=== PATIENT | female | born 1940 | race Caucasian/White ===

== ENCOUNTER 2023-05-30 19:31 | Emergency (ER) | payer MEDICARE, SELFPAY ==
--- NOTE | ~2023-05-30 | CT_ITS ---
CORRECTED REPORT [place] [facility] [place] This report was recreated on 05/31/23. Original report was EXAMINATION: CT brain w/o con DATE: 05/30/2023 20:18 INDICATION: Head injury. TECHNIQUE: Computed tomography (CT) of the head was performed without intravenous contrast. The mA was adjusted according to patient size. Iterative reconstruction technique was employed. The dose-length product was 605.33 mGy- cm. COMPARISON: None FINDINGS: There are scattered areas of low attenuation in the cerebral white matter. There is no intracranial hemorrhage, acute infarction, or abnormal intracranial mass lesion. The ventricles are normal in size. There are likely changes of ocular lens replacement surgeries. There is mucosal thickening in the paranasal sinuses. The mastoid air cells are normal. There is a right occipital craniotomy. There is right posterior superior scalp soft tissue swelling. IMPRESSION: 1. Mild nonspecific cerebral white matter disease, which likely represents chronic small vessel ischemic disease. Reviewed, dictated and finalized at location E. MTDD IMPRESSION: 1. Mild nonspecific cerebral white matter disease, which likely represents clinical dietetic technician izabel small vessel ischemic disease.
--- NOTE | ~2023-05-30 | XR_ITS ---
EXAMINATION: XR lumbar spine 2-3V DATE: 05/30/2023 20:25 INDICATION: Mid to low back pain. Fall. TECHNIQUE: 3 views of lumbar spine were obtained. COMPARISON: None. FINDINGS: There is 17 degrees levoscoliosis of lumbar spine. Vertebral body heights are normal. There is mildly decreased disc height at T12-L1, L1-L2, and L2-L3 and moderately decreased disc height at L2-3-L4 and L4-L5. There is multilevel facet joint osteoarthritis, severe in lower lumbar spine. Ther e are surgical clips in right abdomen. IMPRESSION: 1. Moderate lumbar spondylosis. 2. Lumbar levoscoliosis. Reviewed, dictated and finalized at location E.
--- NOTE | ~2023-05-30 | CT_ITS ---
CORRECTED REPORT EXAM DESCRIPTION [facility] [place] 05/31/23 This report was recreated on 05/31/23. Original report was EXAMINATION: CT cervical spine w/o con DATE: 05/30/2023 20:19 INDICATION: Head injury. TECHNIQUE: Computed tomography (CT) of the cervical spine was performed without intravenous contrast. Automated exposure control and iterative reconstruction technique were employed. The dose-length product was 236.71 mGy-cm. COMPARISON: None FINDINGS: There is 7 degrees levocurvature of cervical spine. Vertebral body heights are normal. There is mildly decreased disc height at C3-C4, C4-C5, and C5-C6 and moderately decreased disc at C6-C7. The following disc levels are specifically discussed: C2-C3: There is no uncovertebral joint osteoarthritis. There is mild bilateral facet joint osteoarthritis. There is no neural foraminal stenosis. There is no central canal stenosis. C3-C4: There is severe right uncovertebral joint osteoarthritis. There is no facet joint osteoarthritis. There is mild right neural foraminal stenosis. There is mild central canal stenosis. C4-C5: There is mild left uncovertebral joint osteoarthritis. There is mild bilateral facet joint osteoarthritis. There is mild left neural foraminal stenosis. There is no central canal stenosis. C5-C6: There is severe bilateral uncovertebral joint osteoarthritis. There is no facet joint osteoarthritis. There is mild bilateral neural foraminal stenosis. There is mild central canal stenosis. C6-C7: There is severe bilateral uncovertebral joint osteoarthritis. There is no facet joint osteoarthritis. There is mild bilateral neural foraminal stenosis. There is mild central canal stenosis. C7-T1: There is no uncovertebral joint osteoarthritis. There is mild bilateral facet joint osteoarthritis. There is no neural foraminal stenosis. There is no central canal stenosis. IMPRESSION: 1. No fracture. 2. Moderate cervical spondylosis. Reviewed, dictated and finalized at location E. MTDD
[2023-05-30 19:57] VITALS: BP 143/72; PULSE 79; RESP 20; TEMP 36.7; O2SAT 98
--- NOTE | 2023-05-30 20:22 | ED.HEATRA ---
HPI - Head Injury General Chief complaint: Head Injury Stated complaint: fall with head injury - no LOC - no thinners Time Seen by Provider: 05/30/23 20:22 Source: patient and family Mode of arrival: ambulatory Limitations: no limitations History of Present Illness HPI Narrative: 82 years old white female, came because of a fall. Her granddaughter was trying to give her a big hug and was standing on a [place] board at that time, patient lost her balance and fell backward landed on her bottom and struck the back of her head on the ground. No loss of consciousness, complaining of tailbone pain and occipital pain. Does not take antiplatelet or anticoagulant medication. Related Data Allergies Allergy/AdvReac Type Severity Reaction Status Date / Time oxcarbazepine Allergy Unknown Hives / Verified 05/30/23 20:29 Red Face Review of Systems Review of Systems: All systems reviewed & are unremarkable except as noted in HPI and below Exam Narrative: General appearance: Well-developed, well-nourished Skin: Normal color Head: Large hematoma at the occipital area Eyes: Clear conjunctiva ENT: Oropharynx normal, ears normal, nose normal Neck: Supple, nontender Chest and respiratory: Airway patent, no respiratory distress, no accessory muscle use Heart: Regular rate/rhythm Abdomen: Soft, nontender, no organomegaly, quiet bowel sounds Vascular: Normal peripheral pulses, normal capillary refill. Musculoskeletal: Moderate tenderness at the sacrum and coccyx area Neurologic: Alert and oriented ?3, EFFICIENCY MINER BLASTING is normal as tested, no gross motor deficit Course Reevaluation(s) Reevaluation #1: Patient declined to take any pain medication at this Date: 05/30/23 Time: 20:32 Vital Signs Vital signs: Vital Signs Temperature 36.7 C 05/30/23 19:57 Pulse Rate 79 05/30/23 19:57 Respiratory Rate 20 05/30/23 19:57 Blood Pressure 143/72 H 05/30/23 19:57 Pulse Oximetry 98 05/30/23 19:57 Oxygen Delivery Room Air 05/30/23 19:57 Temperature 36.7 C 05/30/23 19:57 Pulse Rate 79 05/30/23 19:57 Respiratory Rate 20 05/30/23 19:57 Blood Pressure 143/72 H 05/30/23 19:57 Pulse Oximetry 98 05/30/23 19:57 Oxygen Delivery Room Air 05/30/23 19:57 MDM - Head Injury MDM Narrative Medical decision making narrative: Patient presents with a fall complaining of occipital pain and tailbone pain. Physical examination as above, vital signs are unremarkable, differential diagnosis closed head injury, intracranial bleed, skull fracture, vertebral fracture. CT head and cervical spine and x-ray of the lumbar/coccyx showed no acute abnormalities. Patient declined to take any pain medication in the ED. Differential Diagnosis Differential diagnosis: Likely concussion without loss of consciousness, subarachnoid hematoma, postconcussion syndrome and subdural hematoma Medical Records Attestation: I reviewed the patient's medical records. Imaging Data Attestation: I personally reviewed and interpreted this imaging study as follows: Radiologist's impression: Impressions Head CT 05/30/23 20:19 IMPRESSION: 1. Mild nonspecific cerebral white matter disease, which likely represents chronic small vessel ischemic disease. Critical Care Time Critical Care Time Critical Care Time: No Discharge Plan Discharge Clinical Impression: Back injuries Closed head injury Qualifiers: Encounter type: initial encounter Qualified Code(s): S09.90XA - Unspecified injury of head, initial encounter Patient Disposition: Home, Self-Care Condition: Stable Instructions: Head Injury (ED) Additional Instructions: Return if symptoms are wors
[2023-05-30 20:30] VITALS: BP 153/91; PULSE 81; RESP 14; O2SAT 98
== END 2023-05-30 21:00 | disposition home or self-care (01) ==
PROVIDERS: Emergency Provider Emergency Medicine
DX: S00.03XA Contusion of scalp, initial encounter (principal); S39.92XA Unspecified injury of lower back, initial encounter; R90.82 White matter disease, unspecified; M47.812 Spondylosis without myelopathy or radiculopathy, cervical region; M47.816 Spondylosis without myelopathy or radiculopathy, lumbar region; V00.848A Other accident with standing micro-mobility pedestrian conveyance, initial encounter
CPT/HCPCS: 70450; 70460; 72100; 72125; 72126; 99284; Q9967

== ENCOUNTER 2023-10-20 15:52 | Inpatient (IN) | payer MEDICARE, SELFPAY ==
[2023-10-20] VITALS (7 sets, daily range): BP systolic 60–157; BP diastolic 41–110; PULSE 57–80; RESP 12–23; TEMP 36.7–37; O2SAT 90–100; BMI 31.6
--- NOTE | ~2023-10-20 | XR_ITS ---
EXAMINATION: XR chest 1V DATE: 10/20/2023 17:41 INDICATION: Fall. TECHNIQUE: A single frontal view of the chest was obtained on 2 radiographs. COMPARISON: Chest 2 views 01/25/2018 FINDINGS: There is mild elevation of left hemidiaphragm. There is mild atelectasis at the lung bases. No pleural effusion or pneumothorax. The heart size is normal. Surgical clips in the right upper carla drant are likely from cholecystectomy. IMPRESSION: 1. Mild atelectasis at the lung bases. Reviewed, dictated and finalized at location E. ARY SERIALS ASSISTANT
--- NOTE | ~2023-10-20 | XR_ITS ---
EXAMINATION: XR femur LT min 2V DATE: 10/20/2023 17:41 INDICATION: Left thigh pain. Fall. TECHNIQUE: 2 views of left femur on 4 radiographs were obtained. COMPARISON: None. FINDINGS: There is an intertrochanteric fracture of proximal left femur. The distal fracture fragment demonstrates posterior angulation. There is moderate left hip osteoarthritis. There is severe left k nee osteoarthritis. IMPRESSION: 1. Intertrochanteric fracture of proximal left femur. 2. Polyarticular osteoarthritis. Reviewed, dictated and finalized at location E. ORS MOTIVATIONAL
--- NOTE | ~2023-10-20 | CT_ITS ---
EXAMINATION: CT brain wo con DATE: 10/21/2023 16:33 INDICATION: Head injury. Fall. TECHNIQUE: Computed tomography (CT) of the head was performed without intravenous contrast. The mA wa s adjusted according to patient size. Iterative reconstruction technique was employed. The dose-lengt h product was 605.33 mGy-cm. COMPARISON: Head CT 05/30/2023 FINDINGS: There are scattered areas of low attenuation in the cerebral white matter. There is no intr acranial hemorrhage, acute infarction, or abnormal intracranial mass lesion. The ventricles are lopez l in size. There are changes of right posterior craniotomy. There are likely changes of ocular lens r eplacement surgeries. There is mild mucosal thickening in the paranasal sinuses. The mastoid air cell s are normal. IMPRESSION: 1. Stable mild nonspecific cerebral white matter disease, which likely represents chronic small vesse l ischemic disease. Reviewed, dictated and finalized at location E. ION WORKER IMPRESSION: 1. Stable mild nonspecific cerebral white matter disease, which likely represen ts chronic small vessel ischemic disease.
--- NOTE | ~2023-10-20 | XR_ITS ---
XR surgery orthopedic DATE: 10/22/2023 09:00 INDICATION: ORIF left intertrochanteric hip fracture TECHNIQUE: 4 spot C-arm images of the left hip 14.97 mGy 59 seconds fluoroscopy time COMPARISON: 10/20/2023 pelvis and left hip FINDINGS: Intramedullary pin and interlocking compression screw of proximal left femur provide virtua lly anatomic position and alignment at the intertrochanteric fracture of the left hip. IMPRESSION: ORIF left intertrochanteric hip fracture Reviewed, dictated and finalized at Location A. Reviewed, dictated and finalized at location A.
--- NOTE | ~2023-10-20 | XR_ITS ---
EXAMINATION: XR hip LT 2V w AP pelvis DATE: 10/20/2023 17:41 INDICATION: Left thigh pain. Fall. TECHNIQUE: An anteroposterior view of the pelvis and 2 views of left hip were obtained. COMPARISON: None. FINDINGS: There is an intertrochanteric fracture of proximal left femur. The distal fracture fragment demonstrates posterior angulation. There is moderate osteoarthritis of the hips. Osteitis pubis is n oted. There is lumbar levoscoliosis and severe spondylosis. IMPRESSION: 1. Intertrochanteric fracture of proximal left femur. 2. Moderate osteoarthritis of the hips. Reviewed, dictated and finalized at location E. L BEARING POLISHER
--- NOTE | 2023-10-20 16:36 | ED.FALL ---
HPI - Fall General Chief Complaint: Fall Stated Complaint: GLF Source: patient and family Mode of arrival: EMS Limitations: no limitations History of Present Illness HPI Narrative: 83 yo with insulin dependent (only 3U long acting QHS however) diabetes presents after a ground level fall sustained at 10:30 this morning. She is now complaining of pain in her mid thigh and proximal left leg. Pain was so intense she couldn't get up from the floor so lay there until family arrived hours later. Has not yet taken anything for pain. No paresthesias. Related Data Home Medications Medication Instructions Recorded Confirmed alendronate 70 mg tablet 70 mg PO WEEKLY 10/20/23 10/20/23 benazepril 20 mg tablet 20 mg PO QHS 10/20/23 10/20/23 calcium carbonate 600 mg calcium 600 mg PO DAILY 10/20/23 10/20/23 (1,500 mg) tablet cholecalciferol (vitamin D3) 50 50 mcg PO BID 10/20/23 10/20/23 mcg (2,000 unit) tablet (Vitamin D3) cyanocobalamin (vitamin B-12) 1,000 mcg PO DAILY 10/20/23 10/20/23 1,000 mcg tablet (Vitamin B-12) famotidine 20 mg tablet (Pepcid) 20 mg PO DAILY 10/20/23 10/20/23 insulin glargine 100 unit/mL (3 3 unit subcut QHS 10/20/23 10/20/23 mL) subcutaneous pen (Lantus Solostar U-100 Insulin) [id number] 2 cap PO TID 10/20/23 10/20/23 24,000-76,000-120,000 unit capsule,delayed rel (Creon) omega-3 fatty acids-vitamin E 1,000 cap PO DAILY 10/20/23 10/20/23 1,000 mg capsule simvastatin 20 mg tablet 20 mg PO EVERY OTHER DAY 10/20/23 10/20/23 Allergies Allergy/AdvReac Type Severity Reaction Status Date / Time oxcarbazepine Allergy Unknown Hives / Verified 05/30/23 20:29 Red Face PMFSH Past Medical History Medical History (Updated 10/21/23 @ 08:13 by Diamante Lazar MD) Hypercholesterolemia Hypertension Insulin dependent diabetes mellitus Insulinoma Surgical History Surgical History (Updated 10/20/23 @ 20:55 by Pamela Tilley PA-C) History of cholecystectomy History of resection of small bowel History of Whipple procedure (~2005) Family History Family History (Updated 10/20/23 @ 20:47 by Aleta Kendrick RN) Mother Diabetes mellitus Pulmonary embolism Sibling Diabetes mellitus Atrial fibrillation Sibling Diabetes mellitus Dementia Sibling Diabetes mellitus Father Myocardial infarction Social History Social History Smoking status: Never smoker Alcohol intake: never Substance use: never Substance use type: does not use Do You Feel Safe in your Home?: Yes Lack of Transportation: No Lack of Food: Never True Current Housing: I Have Housing Concerned About Future Housing: No Difficulty Paying Gas/Electric Bills: No Difficulty Paying for Meds: No Currently Unemployed: No Education: High School Diploma/GED Difficulty w/ Childcare or Family Care: No Spiritual care concerns: No Exam Narrative: GENERAL: Well-appearing, well-nourished, and in no acute distress. HEAD: Normocephalic, atraumatic. EYES: Non injected, non icteric ENT: Nares clear, no rhinorrhea or epistaxis. NECK: Supple. CHEST: Speaking in full sentences. No respiratory distress. HEART: Regular rate and rhythm. . ABDOMEN: Soft, nondistended. EXTREMITIES: Left leg short and rotated. No edema. 5/5 strength with left ankle plantarflexion/dorsiflexion. Rest of exam limited secondary to pain. Warm and well perfused. SKIN: Warm, dry, no rash. NEURO: No focal deficits. Alert and oriented x3. Sensation intact throughout left leg. PSYCH: Normal mood and affect. Course Vital Signs Vital signs: Vital Signs Temperature 98.6 F 10/20/23 16:01 Pulse Rate 75 10/20/23 16:01 Respiratory Rate 20 10/20/23 16:01 Blood Pressure 126/110 H 10/20/23 16:01 Pulse Oximetry 99 10/20/23 16:01 Oxygen Delivery Room Air 10/20/23 16:01 Temperature 97.9 F 10/21/23 06:00 Pulse Rate 80 0
[2023-10-20] MEDS: ACETAMINOPHEN 500 MG TABLET 1000 MG PO (16:53)
[2023-10-20 16:59] LABS: Hematocrit 39.5 % (37.0-47.0); Mean Corpuscular HGB Conc 32.9 g/dl (32-36); Mean Corpuscular Hemoglobin 29.3 pg (26-34); Mean Platelet Volume 11.1 fl (7.4-10.4); Platelet Count Result 170 k/mm3 (150-375); Red Blood Count 4.44 M/mm3 (4.2-5.4); Red Cell Distribution Width 12.6 % (11.5-14.5); White Blood Count 14.8 K/mm3 (4.5-10.0)
[2023-10-20 17:08] LABS: Alanine Aminotransferase 22 U/L (6-35); Albumin Level 4.3 g/dL (3.5-5.1); Alkaline Phosphatase 116 U/L (38-126); Anion Gap 7 mmol/L (8-16); Aspartate Amino Transferase 38 U/L (14-36); Bilirubin,Total 0.6 mg/dL (0.2-1.3); Blood Urea Nitrogen 19 mg/dL (7-17); Calcium 9.6 mg/dL (8.4-10.2); Carbon Dioxide 25 mmol/L (22-30); Chloride 104 mmol/L (98-107); Creatine Kinase 179 U/L (30-135); Estimated CRCL calculation 67 ml/min; Estimated Glomerular Filt Rate > 60; Glucose 202 mg/dL (65-110); Magnesium 1.9 mg/dL (1.6-2.3); Potassium 4.3 mmol/L (3.4-5.0); Sodium 136 mmol/L (137-145)
[2023-10-20 17:09] LABS: Prothrombin Time 13.5 Seconds (11.1-14.7)
[2023-10-20 17:10] LABS: Partial Thromboplastin Time 31.7 SECONDS (22.3-36.8)
[2023-10-20 17:52] LABS: Band Neutrophils Percent 3 % (0-6); Lymphocytes Absolute Manual 0.44 K/mm3 (1.1-4.5); Monocytes Absolute Manual 0.44 K/mm3 (0.1-0.90); Monocytes Percent Manual 3 % (3-9); Neutrophils Absolute Manual 13.91 K/mm3 (1.7-7.2); Neutrophils Percent Manual 91 % (46-73); Nucleated Red Blood Cells 1 %; Platelet Estimate Adequate (Adequate); Schistocytes None Seen (NORMAL); Total Cells Counted 100
[2023-10-20] MEDS: MORPHINE SULFATE (*CRX) 4 MG/ML INJ IV PUSH (18:30)
[2023-10-20] MEDS: ONDANSETRON INJ 4 MG/2 ML VIAL IV PUSH ×2 (18:45→19:00)
--- NOTE | 2023-10-20 18:53 | ECG_ITS ---
Measurements Intervals [place] Rate: 54 P: 27 TX: 161 QRS: 12 QRSD: 98 T: 34 QT: 462 QTc: 441 Interpretive Statements SINUS BRADYCARDIA NONSPECIFIC ST-T WAVE ABNORMALITY- LAT/HIGH LAT LEADS BASELINE ARTIFACT- II, AVR, AVF, V4-V6 BORDERLINE ECG NO PREVIOUS ECG AVAILABLE FOR COMPARISON Electronically Signed On 10-21-2023 7:25:11 SOFT WORK WRAPPER LAYER AND EXAMINER by Pradip Patton D.O.
[2023-10-20] MEDS: SODIUM CHLORIDE 0.9% IV 1,000 ML 999 ML (19:00)
[2023-10-20 19:17] LABS: Troponin I < 0.012 ng/mL (0.000-0.034)
--- NOTE | 2023-10-20 19:42 | PM.IMHP ---
H&P: HPI History of Present Illness Date/Time: 10/20/23 19:15 Chief Complaint: Left hip pain after fall. 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 The patient provides the following history. She is in town from [place] visiting her family members and she has been in her usual state of health. Sometime this afternoon she was in the bathroom brushing her hair and when she stepped forward she lost her balance and fell down onto her left side. She was unable to get herself up and unfortunately did not have a phone with her so she lay on the floor for approximately 4 hours before family came home to find her. She denies head trauma and loss of consciousness in the fall and has no other complaints aside from severe, 10/10 pain in the left hip. She received 4 mg IV morphine for her pain which helped however did cause transient hypotension at which time she had mild mid chest tightness lasting less than 1 minute. With further questioning she reports having a stress test many years ago which was negative. She has not had exertional chest pain or shortness of breath. She also denies syncope, near syncope, sweats, pleuritic pain, shortness a breath, nausea, and vomiting. In the ED she was found to have intertrochanteric fracture of the proximal left femur and she is being admitted in this setting. Review of Systems Review of Systems: Twelve systems were reviewed and are negative except for as per HPI. [facility] Past Medical History Medical History (Updated 10/20/23 @ 20:55 by Pamela Tilley PA-C) Hypercholesterolemia Hypertension Insulin dependent diabetes mellitus Insulinoma Surgical History Surgical History (Updated 10/20/23 @ 20:55 by Pamela Tilley PA-C) History of cholecystectomy History of resection of small bowel History of Whipple procedure (~2005) Family History Family History Mother Diabetes mellitus Pulmonary embolism Sibling Diabetes mellitus Atrial fibrillation Sibling Diabetes mellitus Dementia Sibling Diabetes mellitus Father Myocardial infarction Social History Social History Smoking status: Never smoker Alcohol intake: never Substance use: never Substance use type: does not use Do You Feel Safe in your Home?: Yes Lack of Transportation: No Lack of Food: Never True Current Housing: I Have Housing Concerned About Future Housing: No Difficulty Paying Gas/Electric Bills: No Difficulty Paying for Meds: No Currently Unemployed: No Education: High School Diploma/GED Difficulty w/ Childcare or Family Care: No Spiritual care concerns: No Meds Home Medications and Allergies Home Medications Medication Instructions Recorded Confirmed Type alendronate 70 mg tablet 70 mg PO WEEKLY 10/20/23 10/20/23 History benazepril 20 mg tablet 20 mg PO QHS 10/20/23 10/20/23 History calcium carbonate 600 mg calcium 600 mg PO DAILY 10/20/23 10/20/23 History (1,500 mg) tablet cholecalciferol (vitamin D3) 50 50 mcg PO BID 10/20/23 10/20/23 History mcg (2,000 unit) tablet (Vitamin D3) cyanocobalamin (vitamin B-12) 1,000 mcg PO DAILY 10/20/23 10/20/23 History 1,000 mcg tablet (Vitamin B-12) famotidine 20 mg tablet (Pepcid) 20 mg PO DAILY 10/20/23 10/20/23 History insulin glargine 100 unit/mL (3 3 unit subcut QHS 10/20/23 10/20/23 History mL) subcutaneous pen (Lantus Solostar U-100 Insulin) [id number] 2 cap PO TID 10/20/23 10/20/23 History 24,000-76,000-120,000 unit capsule,delayed rel (Creon) omega-3 fatty acids-vitamin E 1,000 cap PO DAILY
--- NOTE | 2023-10-20 20:45 | ADMGEN ---
This patient, Nicole To, was admitted to Medical Room 247-. Patient/family oriented to hospital policies and general routines including ID bracelet, bed and alarms, visiting hours, pain management, procedures, bathroom and other care routines, personal items, smoking policy, room service/diet, and visiting hours. Information on how to activate the Rapid Response Team has been discussed. Patient/Family are encouraged to report perceived risks to care and to ask questions if they do not understand what they are told or what they should do.
[2023-10-20] MEDS: HYDROcodone/acetaminophen (*CRX) 5-325 MG TABLET 1 TAB PO (20:56)
[2023-10-20] MEDS: lisinopriL 20 MG TABLET PO (22:04)
[2023-10-20] MEDS: INSULIN GLARGINE (*BKC) 100 UNITS/ML SUB-Q (22:04)
[2023-10-20 22:05] LABS: Troponin I < 0.012 ng/mL (0.000-0.034)
[2023-10-21] VITALS (9 sets, daily range): BP systolic 114–128; BP diastolic 49–70; PULSE 75–87; RESP 16–18; TEMP 36.4–36.8; O2SAT 93–98
[2023-10-21 00:48] LABS: Troponin I < 0.012 ng/mL (0.000-0.034)
[2023-10-21] MEDS: traMADol HCL (*CRX) 50 MG TABLET PO ×2 (01:28→07:54)
[2023-10-21 05:39] LABS: Alanine Aminotransferase 22 U/L (6-35); Albumin Level 3.6 g/dL (3.5-5.1); Alkaline Phosphatase 82 U/L (38-126); Anion Gap 5 mmol/L (8-16); Aspartate Amino Transferase 36 U/L (14-36); Bilirubin,Total 0.6 mg/dL (0.2-1.3); Blood Urea Nitrogen 15 mg/dL (7-17); Calcium 8.7 mg/dL (8.4-10.2); Carbon Dioxide 24 mmol/L (22-30); Chloride 104 mmol/L (98-107); Creatine Kinase 138 U/L (30-135); Estimated CRCL calculation 68 ml/min; Estimated Glomerular Filt Rate > 60; Glucose 180 mg/dL (65-110); Magnesium 1.9 mg/dL (1.6-2.3); Sodium 133 mmol/L (137-145)
[2023-10-21 06:30] LABS: Hematocrit 36.4 % (37.0-47.0); Hemoglobin 12.1 g/dL (12.0-15.0); Mean Corpuscular HGB Conc 33.2 g/dl (32-36); Mean Corpuscular Hemoglobin 29.5 pg (26-34); Mean Corpuscular Volume 88.8 fl (80-100); Mean Platelet Volume 11.2 fl (7.4-10.4); Platelet Count Result 166 k/mm3 (150-375); Red Cell Distribution Width 12.8 % (11.5-14.5); White Blood Count 10.6 K/mm3 (4.5-10.0)
[2023-10-21 08:07] LABS: Glucose Point of Care 171 mg/dl (65-105)
[2023-10-21] MEDS: PERFLUTREN LIPID MICROSPHERES 1.5 ML VIAL DILUTED TO 10 ML TOTAL VOLUME IV PUSH (09:10)
--- NOTE | 2023-10-21 10:36 | IVDEFINITY ---
Prior to administration of IV Definity the patient was educated on the risks and benefits of the imaging enhancing agent including potential adverse side effects. The patient verbalized understanding. Allergies were verified. No exclusion criteria were identified and at least one of the following inclusion criteria were met: 1) physician request, 2) patient technically difficult to image (per the [place] [employer] guidelines of two or more segments not discernable within the apical view), or 3) questionable left ventricular function. ?
--- NOTE | 2023-10-21 10:55 | PM.CNOR ---
Assessment and Plan Assessment and plan (1) Intertrochanteric fracture of left femur: Qualifiers: Encounter type: initial encounter Fracture type: closed Fracture alignment: displaced Qualified Code(s): S72.142A - Displaced intertrochanteric fracture of left femur, initial encounter for closed fracture Code(s): S72.142A - Displaced intertrochanteric fracture of left femur, initial encounter for closed fracture Status: Acute Plan Displaced intertrochanteric fracture left hip. I discussed the proposed procedure with the patient and family. Risks, benefits, and alternatives discussed. Proceed with ORIF left hip with cephalomedullary nail (short gamma nail). Anticipate 6 weeks acute rehab before returning to [place]. History of Present Illness HPI Consult date: 10/21/23 Chief complaint: l intertrochanteric fx, hx diabetes Narrative: Patient complains of acute left hip pain. Fell from standing height. She is in town from [place] visiting family. Admitted through the emergency room for definitive management. No previous hip pain. Comfortable at rest. No numbness, tingling, or other associated symptoms. Review of Systems Review of Systems: Denies loss of consciousness. Was down for several hours after falling. History of cirrhosis of the liver, pancreatic insufficiency, and insulin-dependent diabetes mellitus. All systems reviewed & are unremarkable except as noted in HPI and below PMFSH Past Medical History Medical History (Updated 10/21/23 @ 11:09 by Elliott Cosme MD) Hypercholesterolemia Hypertension Insulin dependent diabetes mellitus Insulinoma Surgical History Surgical History (Updated 10/20/23 @ 20:55 by Pamela Tilley PA-C) History of cholecystectomy History of resection of small bowel History of Whipple procedure (~2005) Family History Family History (Updated 10/20/23 @ 20:47 by Aleta Kendrick RN) Mother Diabetes mellitus Pulmonary embolism Sibling Diabetes mellitus Atrial fibrillation Sibling Diabetes mellitus Dementia Sibling Diabetes mellitus Father Myocardial infarction Social History Social History Smoking status: Never smoker Alcohol intake: never Substance use: never Substance use type: does not use Do You Feel Safe in your Home?: Yes Lack of Transportation: No Lack of Food: Never True Current Housing: I Have Housing Concerned About Future Housing: No Difficulty Paying Gas/Electric Bills: No Difficulty Paying for Meds: No Currently Unemployed: No Education: High School Diploma/GED Difficulty w/ Childcare or Family Care: No Spiritual care concerns: No Meds Home Medications and Allergies Home Medications Medication Instructions Recorded Confirmed Type alendronate 70 mg tablet 70 mg PO WEEKLY 10/20/23 10/20/23 History benazepril 20 mg tablet 20 mg PO QHS 10/20/23 10/20/23 History calcium carbonate 600 mg calcium 600 mg PO DAILY 10/20/23 10/20/23 History (1,500 mg) tablet cholecalciferol (vitamin D3) 50 50 mcg PO BID 10/20/23 10/20/23 History mcg (2,000 unit) tablet (Vitamin D3) cyanocobalamin (vitamin B-12) 1,000 mcg PO DAILY 10/20/23 10/20/23 History 1,000 mcg tablet (Vitamin B-12) famotidine 20 mg tablet (Pepcid) 20 mg PO DAILY 10/20/23 10/20/23 History insulin glargine 100 unit/mL (3 3 unit subcut QHS 10/20/23 10/20/23 History mL) subcutaneous pen (Lantus Solostar U-100 Insulin) [id number] 2 cap PO TID 10/20/23 10/20/23 History 24,000-76,000-120,000 unit capsule,delayed rel (Creon) omega-3 fatty acids-vitamin E 1,000 cap PO DAILY 10/20/23 10/20/23 History 1,000 mg capsule simvastatin 20 mg tablet 20 mg PO EVERY OTHER DAY 10/20/23 10/20/23 History Allergies Allergy/AdvReac Type Severity Reaction Status Date / Time oxcarbazepine Allergy Unknown Hives / Verified 05/30/23 20:29 R
--- NOTE | 2023-10-21 11:13 | PM.IMPN ---
Progress Note: A&P Assessment and Plan (1) Intertrochanteric fracture of left femur: Qualifiers: Encounter type: initial encounter Fracture type: closed Fracture alignment: displaced Qualified Code(s): S72.142A - Displaced intertrochanteric fracture of left femur, initial encounter for closed fracture Code(s): S72.142A - Displaced intertrochanteric fracture of left femur, initial encounter for closed fracture Status: Acute (2) Chest tightness: Code(s): R07.89 - Other chest pain Status: Acute (3) Insulin dependent diabetes mellitus: Status: Acute (4) Hypertension: Code(s): I10 - Essential (primary) hypertension Status: Acute (5) Pancreatic insufficiency: Code(s): K86.89 - Other specified diseases of pancreas Status: Acute Plan Intertrochanteric femur fracture LT (reported fall after brushing her hair and flipping up her head) Consult othro NPO ORIF 10/20 Pain control pepcid monitor labs scd's consult to CC for rehab antiemetics IV fluids Diabetes Accu-Cheks a.c. HS sliding scale insulin resume patient's home long-acting Diabetic diet Watch for hypoglycemia/hypoglycemic protocol ordered HTN Stable resume home medications monitor per protocol Code status: Full code per patient DVT prophylaxis: SCD's Stress ulcer prophylaxis: Pepcid PT/OT notes: PT/OT post surgery Disposition: Patient continues admission for surgical intervention of Intertrochanteric femur fracture LT and will need post-op rehab prior to returning back to [place]. CC was consulted for assistance. Time Spent With Patient Time with patient: 15 - 25 minutes Subjective Date/time seen: 10/21/23 11:13 Interval history: (Medical Record) Chief Complaint: Left hip pain after fall. 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 The patient provides the following history. She is in town from [place] visiting her family members and she has been in her usual state of health. Sometime this afternoon she was in the bathroom brushing her hair and when she stepped forward she lost her balance and fell down onto her left side. She was unable to get herself up and unfortunately did not have a phone with her so she lay on the floor for approximately 4 hours before family came home to find her. She denies head trauma and loss of consciousness in the fall and has no other complaints aside from severe, 10/10 pain in the left hip. She received 4 mg IV morphine for her pain which helped however did cause transient hypotension at which time she had mild mid chest tightness lasting less than 1 minute. With further questioning she reports having a stress test many years ago which was negative. She has not had exertional chest pain or shortness of breath. She also denies syncope, near syncope, sweats, pleuritic pain, shortness a breath, nausea, and vomiting. In the ED she was found to have intertrochanteric fracture of the proximal left femur and she is being admitted in this setting. 10/20/: Patient resting comfortable and pain controlled. Pedal pulses 2+ bLE and LT extremity warm to touch and positive for sensation. Labs unremarkable and vitals stable, plan is for surgical intervention of LT intertrochanteric femur fracture. Review of Systems Review of Systems: Twelve systems were reviewed and are negative except for as per HPI. All systems reviewed & are unremarkable except as noted in HPI and below Exam Narrative: General: A well-developed, nontoxic-appearing female in the semi-Harris position in bed in no acute distress. HEENT: Normocephalic
[2023-10-21 12:01] LABS: Glucose Point of Care 170 mg/dl (65-105)
[2023-10-21] MEDS: CALCIUM CARBONATE (OSCAL) 500 MG TABLET PO (12:47)
[2023-10-21] MEDS: FAMOTIDINE 20 MG TABLET PO (12:47)
[2023-10-21] MEDS: SIMVASTATIN 20 MG TABLET PO (12:48)
[2023-10-21] MEDS: LIPASE/AMYLASE/PROTEASE 12,000 UNITS CAP 4 CAP PO ×2 (12:49→17:49)
[2023-10-21] MEDS: CYANOCOBALAMIN 1,000 MCG TABLET 1000 MCG PO (12:49)
[2023-10-21] MEDS: HYDROmorphone HCL INJ (*CRX) 1 MG/ML SYR 0.5 MG IV PUSH (12:49)
[2023-10-21 16:56] LABS: Glucose Point of Care 176 mg/dl (65-105)
[2023-10-21] MEDS: CHOLECALCIFEROL 1,000 UNITS TABLET 2000 UNITS PO (17:49)
[2023-10-21] MEDS: ONDANSETRON INJ 4 MG/2 ML VIAL IV PUSH ×2 (19:00→23:15)
[2023-10-21] MEDS: oxyCODONE/ACETAMINOPHEN (*CRX) 5-325 MG TABLET 1 TABLET PO ×2 (19:00→23:15)
--- NOTE | 2023-10-21 21:10 | ECHO_ITS ---
Patient Info Name: Nicole To Age: 83 years : 1940 Gender: Female Ht: 61 in Wt: 167 lbs BSA: 1.84 m2 HR: 78 bpm BP: 157 / 77 mmHg Heart Rhythm: Sinus Rhythm Technical Quality: Poor Exam Date: 10/21/2023 8:17 AM Exam Location: Echo Lab Exam Room: [facility] Patient Status: Inpatient Admit Date: 10/20/2023 Staff Ordering Physician: Pamela Tilley PA-C Ecotherapist: Deborah Jones RDCS Attending Provider: Miguel Keene MD Referring Physician: Jarek MARTELL; Exam Type: CA echo dop color flow w con Study Info Indications - CHEST TIGHTNESS HTN Complete two-dimensional, color flow and Doppler transthoracic echocardiogram is performed with contrast to opacify the left ventricle and to improve the deliniation of the left ventricle endocardial borders. Contrast/Agitated Saline Contrast/Ag. Saline: Definity Amount: --- ml Administered By: [facility] Existing IV Access: Yes IV Access Condition: patent with no signs of infiltration Reason for Poor Study: poor echocardiographic windows Summary 1. Left ventricular chamber dimension is normal. 2. Left ventricular systolic function is normal, estimated at >70%. 3. The left ventricular diastolic function is grade I diastolic dysfunction. 4. Left atrial chamber dimension is moderately enlarged. 5. Technically difficult study with limited views. Left Ventricle Left ventricular chamber dimension is normal. Left ventricular systolic function is normal, estimated at >70%. There is no increased left ventricular wall thickness. The left ventricular diastolic function is grade I diastolic dysfunction. Right Ventricle Right ventricular chamber dimension is not well visualized. Left Atria Left atrial chamber dimension is moderately enlarged. Right Atria Right atrial chamber dimension is not well visualized. Aortic Valve The aortic valve is probable trileaflet. There is no aortic valve stenosis. There is no aortic valve regurgitation. There is severe aortic valve calcification. Pulmonic Valve The pulmonic valve is not well visualized. Mitral Valve There is trace mitral valve regurgitation. The mitral valve annulus is severely calcified. Tricuspid Valve There is mild tricuspid valve regurgitation. Pericardium/Pleural There is no pericardial effusion. Inferior Vena Cava Normal inferior vena cava with >50% collapse upon inspiration consistent with normal right atrial pressure, 3 mmHg. Aorta The aortic root size at the sinus of Valsalva is normal. Left Ventricular Outflow Tract Name Value Normal LVOT 2D LVOT Diameter 1.99 cm LVOT Doppler LVOT Peak Gradient 4 mmHg LVOT Mean Gradient 3 mmHg LVOT VTI 21.81 cm LVOT VTI/AV VTI Ratio 1.02 LVOT Stroke Volume 67.86 ml LVOT CO 14.46 l/min LVOT CI 7.87 L/min/m2 Pulmonic Valve Name Value Normal
[2023-10-21] MEDS: INSULIN ASPART (*BKC) 100 UNITS/ML SUB-Q (21:39)
[2023-10-21] MEDS: INSULIN GLARGINE (*BKC) 100 UNITS/ML SUB-Q (21:40)
[2023-10-21 22:49] LABS: Glucose Point of Care 219 mg/dl (65-105)
[2023-10-22] VITALS (18 sets, daily range): BP systolic 101–147; BP diastolic 54–78; PULSE 78–92; RESP 12–18; TEMP 36.1–37.3; O2SAT 90–100
--- NOTE | 2023-10-22 07:41 | WPDHPUPDATE1 ---
History and Physical Update Update Date/Time: 10/22/23 07:41 History and Physical has been reviewed, including an updated exam of the patient. There are NO changes in the patient's condition. Risks, benefits, and alternatives have been discussed and questions answered. Patient agrees to proceed with procedure.
--- NOTE | 2023-10-22 07:53 | WPDANESEPPF ---
Anes - Initial Pre Proc Eval Procedure: Operation Date: 10/22/23 07:30 Proposed Procedures p Intertrochanteric Nail Gamma Nail(Left) - Elliott Cosme MD Date/Time: 10/22/23 07:53 Surgeon: Miguel Keene MD Pre Op Diagnosis: l intertrochanteric fx, hx diabetes Patient Data Age: 83 Gender: F Height: 1.55 m Weight: 75 kg Last Vital Signs Temp 36.5 C 10/22/23 06:00 Pulse 87 10/22/23 06:00 Resp 18 10/22/23 06:00 BP 120/54 L 10/22/23 06:00 Pulse Ox 90 10/22/23 06:00 O2 Del Method Room Air 10/21/23 09:30 O2 Flow Rate 1 10/20/23 20:00 Allergies Allergy/AdvReac Type Severity Reaction Status Date / Time oxcarbazepine Allergy Unknown Hives / Verified 05/30/23 20:29 Red Face Home Medications Medication Instructions Recorded Confirmed Type alendronate 70 mg tablet 70 mg PO WEEKLY 10/20/23 10/20/23 History benazepril 20 mg tablet 20 mg PO QHS 10/20/23 10/20/23 History calcium carbonate 600 mg calcium 600 mg PO DAILY 10/20/23 10/20/23 History (1,500 mg) tablet cholecalciferol (vitamin D3) 50 50 mcg PO BID 10/20/23 10/20/23 History mcg (2,000 unit) tablet (Vitamin D3) cyanocobalamin (vitamin B-12) 1,000 mcg PO DAILY 10/20/23 10/20/23 History 1,000 mcg tablet (Vitamin B-12) famotidine 20 mg tablet (Pepcid) 20 mg PO DAILY 10/20/23 10/20/23 History insulin glargine 100 unit/mL (3 3 unit subcut QHS 10/20/23 10/20/23 History mL) subcutaneous pen (Lantus Solostar U-100 Insulin) [id number] 2 cap PO TID 10/20/23 10/20/23 History 24,000-76,000-120,000 unit capsule,delayed rel (Creon) omega-3 fatty acids-vitamin E 1,000 cap PO DAILY 10/20/23 10/20/23 History 1,000 mg capsule simvastatin 20 mg tablet 20 mg PO EVERY OTHER DAY 10/20/23 10/20/23 History Laboratory Tests 10/21/23 10/21/23 10/21/23 08:04 11:46 11:58 POC Capillary Glucose 171 H mg/dl 170 H mg/dl (65-105) (65-105) Blood Type O Positive Antibody Screen Negative 10/21/23 10/21/23 16:53 21:37 POC Capillary Glucose 176 H mg/dl 219 H mg/dl (65-105) (65-105) Blood Type Antibody Screen Patient hx anesthesia problems: other (slow to awaken) Family hx anesthesia problems: none Results Review: All pre-operative results and documents have been reviewed as part of the pre-operative evaluation. [facility] Past Medical History Medical History Hypercholesterolemia Hypertension Insulin dependent diabetes mellitus Insulinoma Surgical History Surgical History History of cholecystectomy History of resection of small bowel History of Whipple procedure (~2005) Family History Family History Mother Diabetes mellitus Pulmonary embolism Sibling Diabetes mellitus Atrial fibrillation Sibling Diabetes mellitus Dementia Sibling Diabetes mellitus Father Myocardial infarction Social History Social History Smoking status: Never smoker Alcohol intake: never Substance use: never Substance use type: does not use Do You Feel Safe in your Home?: Yes Lack of Transportation: No Lack of Food: Never True Current Housing: I Have Housing Concerned About Future Housing: No Difficulty Paying Gas/Electric Bills: No Difficulty Paying for Meds: No Currently Unemployed: No Education: High School Diploma/GED Difficulty w/ Childcare or Family Care: No Spiritual care concerns: No Anes - Eval Final PreProcedure Day of Procedure 10/22/23 07:53 Patient weight: obese Heart: regular rate and rhythm Lungs: clear to auscultation Airway: Mallampati scale class II Neurological: alert and oriented Last oral intake: >/= 8 hours ASA classification: III Emergent: n
[2023-10-22] MEDS: TRANEXAMIC ACID 1,000MG/ISO100 1,000 MG/100 ML BAG 200 MG IVPB (07:56)
[2023-10-22] MEDS: LACTATED RINGERS 1,000 ML 30 ML IV CONT (07:57)
[2023-10-22] MEDS: ceFAZolin 2 GM/D5W 50 ML 2 GM/50 ML BAG IVPB ×2 (08:06→16:06)
[2023-10-22] MEDS: BUPIVACAINE/EPINEPHRINE 0.5% 30 ML VIAL INFILTRATE (09:00)
--- NOTE | 2023-10-22 09:04 | P.OP_ITS ---
Procedure Note - Detailed Date of Procedure 10/22/23 Pre-op Diagnosis l intertrochanteric fx, hx diabetes Post-op Diagnosis Same Procedure Performed ORIF left hip intertrochanteric fracture with cephalomedullary nail. Surgeon Elliott Cosme MD Community Organization Worker Jazmin Rivera PA-C Anesthesia General Findings Short locked gamma nail. Description of Procedure The patient was given a general anesthetic, then carefully placed in fracture t able. Sterile prep and drape performed in the usual fashion. Sterile curtain was used. Gentle traction was utilized to reduce the fracture. Fluoroscopy was used to confirm anatomic reduction and a proper placement of the implants. A longitudinal incision was created at the tip of the trochanter. The deep fascia was incised. The cannulated awl was used to open the proximal femur. The guidewire was placed across the fracture. The reamer was used to open the canal. The gamma nail was placed across the fracture site. A separate incision was made for placement of the cannulated guide sleeve. The guide pin was placed in the center of the femoral head. Appropriate measurement was taken. The pin was over reamed. The screw was placed with excellent purchase. The set screw was placed proximally and backed out a quater turn. The distal locking screw was placed through the jig. The jig was removed. The wound was irrigated. The deep fascia was closed with #1 Vicryl suture followed by 2-0 Vicryl suture and carol. Sterile dressing was applied. The patient was transferred to the recovery room in stable condition. There were no complications. Physician licensed physical therapy assistant, Jazmin Rivera PA-C, required for surgery; including patient positioning on the fracture table, draping, tissue retraction, maintaining instrument position, wound closure, and dressing placement. Implants Short Gamma nail 3, [place]. 80mm lag screw. 11x 180 x 125 deg. nail. 37.5mm distal locking screw. Estimated Blood Loss 100 Urine Output 451 Drains No Packing No Pathology None sent Complications No immediate complications Condition Stable Disposition PACU [facility] Billing Surgery - Charge Forward: Surgery Billing
[2023-10-22 09:21] LABS: Glucose Point of Care 171 mg/dl (65-105)
--- NOTE | 2023-10-22 10:38 | PC.NURSE ---
pt back in room via bed from surgery.
[2023-10-22] MEDS: SODIUM CHLORIDE 0.9% IV 1,000 ML 125 ML IV CONT ×2 (10:53→20:23)
[2023-10-22] MEDS: SENNA/DOCUSATE SODIUM TABLET 2 TAB PO ×2 (10:54→16:03)
[2023-10-22] MEDS: ENOXAPARIN 40 MG/0.4 ML SYRINGE SUB-Q (10:54)
[2023-10-22] MEDS: polyethylene glycoL 3350 17 GM POWD.PACK PO (10:54)
[2023-10-22] MEDS: ACETAMINOPHEN 500 MG TABLET 1000 MG PO ×3 (10:54→20:21)
[2023-10-22] MEDS: CALCIUM CARBONATE (OSCAL) 500 MG TABLET PO (10:54)
[2023-10-22] MEDS: CHOLECALCIFEROL 1,000 UNITS TABLET 2000 UNITS PO ×2 (10:55→16:03)
[2023-10-22] MEDS: FAMOTIDINE 20 MG TABLET PO (10:55)
[2023-10-22] MEDS: CYANOCOBALAMIN 1,000 MCG TABLET 1000 MCG PO (10:55)
[2023-10-22] MEDS: LIPASE/AMYLASE/PROTEASE 12,000 UNITS CAP 4 CAP PO ×2 (10:55→16:06)
[2023-10-22 11:59] LABS: Glucose Point of Care 216 mg/dl (65-105)
[2023-10-22 12:19] LABS: Hemoglobin 11.7 g/dL (12.0-15.0); Mean Corpuscular HGB Conc 32.5 g/dl (32-36); Mean Corpuscular Hemoglobin 29.1 pg (26-34); Mean Corpuscular Volume 89.6 fl (80-100); Mean Platelet Volume 11.1 fl (7.4-10.4); Platelet Count Result 137 k/mm3 (150-375); Red Blood Count 4.02 M/mm3 (4.2-5.4); Red Cell Distribution Width 12.8 % (11.5-14.5); White Blood Count 15.5 K/mm3 (4.5-10.0)
--- NOTE | 2023-10-22 12:24 | PM.IMPN ---
Progress Note: A&P Assessment and Plan (1) Intertrochanteric fracture of left femur: Qualifiers: Encounter type: initial encounter Fracture type: closed Fracture alignment: displaced Qualified Code(s): S72.142A - Displaced intertrochanteric fracture of left femur, initial encounter for closed fracture Code(s): S72.142A - Displaced intertrochanteric fracture of left femur, initial encounter for closed fracture Status: Acute (2) Chest tightness: Code(s): R07.89 - Other chest pain Status: Acute (3) Insulin dependent diabetes mellitus: Status: Acute (4) Hypertension: Code(s): I10 - Essential (primary) hypertension Status: Acute (5) Pancreatic insufficiency: Code(s): K86.89 - Other specified diseases of pancreas Status: Acute Plan Intertrochanteric femur fracture LT (reported fall after brushing her hair and flipping up her head) Consult othro ORIF 10/20 Post-op day 1 Pain control pepcid monitor labs scd's consult to CC for rehab antiemetics IV fluids PT/OT Incentive spirometer while awake Diabetes Accu-Cheks a.c. HS sliding scale insulin resume patient's home long-acting Diabetic diet Watch for hypoglycemia/hypoglycemic protocol ordered HTN Stable resume home medications monitor per protocol Code status: Full code per patient DVT prophylaxis: SCD's/Lovenox post op Stress ulcer prophylaxis: Pepcid PT/OT notes: PT/OT post surgery Disposition: Patient continues admission for surgical intervention of Intertrochanteric femur fracture LT and will need post-op rehab prior to returning back to [place]. CC was consulted for assistance. Time Spent With Patient Time with patient: 15 - 25 minutes Subjective Date/time seen: 10/22/23 12:24 Interval history: (Medical Record) Chief Complaint: Left hip pain after fall. 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 The patient provides the following history. She is in town from [place] visiting her family members and she has been in her usual state of health. Sometime this afternoon she was in the bathroom brushing her hair and when she stepped forward she lost her balance and fell down onto her left side. She was unable to get herself up and unfortunately did not have a phone with her so she lay on the floor for approximately 4 hours before family came home to find her. She denies head trauma and loss of consciousness in the fall and has no other complaints aside from severe, 10/10 pain in the left hip. She received 4 mg IV morphine for her pain which helped however did cause transient hypotension at which time she had mild mid chest tightness lasting less than 1 minute. With further questioning she reports having a stress test many years ago which was negative. She has not had exertional chest pain or shortness of breath. She also denies syncope, near syncope, sweats, pleuritic pain, shortness a breath, nausea, and vomiting. In the ED she was found to have intertrochanteric fracture of the proximal left femur and she is being admitted in this setting. 10/20/: Patient resting comfortable and pain controlled. Pedal pulses 2+ bLE and LT extremity warm to touch and positive for sensation. Labs unremarkable and vitals stable, plan is for surgical intervention of LT intertrochanteric femur fracture. 10/21: Patient seen post-op ding well with no complaints. Tired but answering all questions appropriately and following commands. Vitals stable and LLE neurovascular intake, Pulse 2+, warm with sensation. Review of Systems Review of Systems: Twelve systems were revie
[2023-10-22 12:27] LABS: Alanine Aminotransferase 29 U/L (6-35); Albumin Level 3.7 g/dL (3.5-5.1); Alkaline Phosphatase 91 U/L (38-126); Anion Gap 3 mmol/L (8-16); Aspartate Amino Transferase 36 U/L (14-36); Bilirubin,Total 0.5 mg/dL (0.2-1.3); Blood Urea Nitrogen 12 mg/dL (7-17); Calcium 8.6 mg/dL (8.4-10.2); Carbon Dioxide 27 mmol/L (22-30); Chloride 100 mmol/L (98-107); Estimated CRCL calculation 57 ml/min; Estimated Glomerular Filt Rate > 60; Glucose 209 mg/dL (65-110); Potassium 4.6 mmol/L (3.4-5.0); Sodium 130 mmol/L (137-145)
[2023-10-22 17:23] LABS: Glucose Point of Care 225 mg/dl (65-105)
[2023-10-22] MEDS: INSULIN ASPART (*BKC) 100 UNITS/ML SUB-Q (17:30)
[2023-10-22] MEDS: oxyCODONE HCL (*CRX) 5 MG TAB IR PO (19:43)
[2023-10-22] MEDS: ONDANSETRON INJ 4 MG/2 ML VIAL IV PUSH (19:44)
[2023-10-22] MEDS: lisinopriL 20 MG TABLET PO (20:21)
[2023-10-22 21:19] LABS: Glucose Point of Care 197 mg/dl (65-105)
[2023-10-22] MEDS: INSULIN GLARGINE (*BKC) 100 UNITS/ML SUB-Q (21:31)
[2023-10-23] VITALS (12 sets, daily range): BP systolic 118–148; BP diastolic 51–71; PULSE 83–97; RESP 16–18; TEMP 36.3–37.1; O2SAT 91–94
[2023-10-23] MEDS: ceFAZolin 2 GM/D5W 50 ML 2 GM/50 ML BAG IVPB ×2 (01:34→08:42)
[2023-10-23 05:28] LABS: Basophils Percent Auto 0.1 % (0.2-1.2); Eosinophils Percent Auto 0.2 % (0-4.4); Hematocrit 32.1 % (37.0-47.0); Hemoglobin 10.6 g/dL (12.0-15.0); Immature Granulocyte Absolute 0.05 K/mm3 (0.00-0.031); Immature Granulocyte Percent A 0.5 % (0-0.5); Immature Platelet Fraction Pct 8.8 % (0.9-11.2); Lymphocytes Absolute Auto 0.96 K/mm3 (0.9-3.2); Lymphocytes Percent Auto 8.9 % (18.3-44.2); Mean Corpuscular Hemoglobin 29.4 pg (26-34); Mean Corpuscular Volume 88.9 fl (80-100); Mean Platelet Volume 11.5 fl (7.4-10.4); Monocytes Percent Auto 8.9 % (2.6-8.5); Neutrophils Absolute Auto 8.8 K/mm3 (1.3-6.7); Neutrophils Percent Auto 81.4 % (45.5-73.1); Platelet Count Result 129 k/mm3 (150-375); Red Blood Count 3.61 M/mm3 (4.2-5.4); Red Cell Distribution Width 12.7 % (11.5-14.5); White Blood Count 10.8 K/mm3 (4.5-10.0)
[2023-10-23 05:33] LABS: Alanine Aminotransferase 30 U/L (6-35); Albumin Level 3.2 g/dL (3.5-5.1); Alkaline Phosphatase 80 U/L (38-126); Anion Gap 2 mmol/L (8-16); Aspartate Amino Transferase 42 U/L (14-36); Bilirubin,Total 0.5 mg/dL (0.2-1.3); Blood Urea Nitrogen 11 mg/dL (7-17); Calcium 8.8 mg/dL (8.4-10.2); Carbon Dioxide 28 mmol/L (22-30); Chloride 105 mmol/L (98-107); Estimated CRCL calculation 56 ml/min; Estimated Glomerular Filt Rate > 60; Glucose 148 mg/dL (65-110); Potassium 3.8 mmol/L (3.4-5.0); Sodium 135 mmol/L (137-145)
[2023-10-23] MEDS: SODIUM CHLORIDE 0.9% IV 1,000 ML 125 ML IV CONT (05:52)
[2023-10-23 08:16] LABS: Glucose Point of Care 146 mg/dl (65-105)
--- NOTE | 2023-10-23 08:29 | WPDANESPN ---
Anes - Prog Note Post-Op Date/Time: 10/23/23 08:29 Cardiovascular status: normal Respiratory status: normal Airway patency: baseline Mental status: baseline Post-Op hydration status: normal Vital Signs: Last Vital Signs Temp 36.6 C 10/23/23 04:10 Pulse 90 10/23/23 04:10 Resp 18 10/23/23 04:10 BP 135/60 10/23/23 04:10 Pulse Ox 93 10/23/23 04:10 O2 Del Method Nasal Cannula 10/22/23 20:00 O2 Flow Rate 2 10/22/23 20:00 Pain Score (VAS): 10/21 I/O: Intake & Output 10/22/23 10/23/23 10/23/23 23:59 07:59 15:59 Intake Total 1530 1000 Output Total 1700 1200 Balance -170 -200 Laboratory Tests 10/23/23 04:52 10/23/23 04:52 10/22/23 10/22/23 10/22/23 09:18 11:48 12:09 WBC 15.5 H RBC 4.02 L Hgb 11.7 L Hct 36.0 L MCV 89.6 MCH 29.1 MCHC 32.5 RDW 12.8 Plt Count 137 L MPV 11.1 H Immature Gran % (Auto) Neut % (Auto) Lymph % (Auto) [place] % (Auto) Eos % (Auto) Baso % (Auto) Lymph # (Auto) [place] # (Auto) Eos # (Auto) Baso # (Auto) Abs Immat Gran (auto) Absolute Neuts (auto) Absolute Nucleated RBC Nucleated RBC % % Immature Plt Fraction 9.0 Sodium 130 L Potassium 4.6 Chloride 100 Carbon Dioxide 27 Anion Gap 3 L BUN 12 Creatinine 0.60 L Estim Creat Clear Calc 57 Estimated GFR > 60 Glucose 209 H POC Capillary Glucose 171 H 216 H Calcium 8.6 Total Bilirubin 0.5 AST 36 ALT 29 Alkaline Phosphatase 91 Total Protein 7.0 Albumin 3.7 10/22/23 10/22/23 10/23/23 17:18 21:06 04:52 WBC 10.8 H RBC 3.61 L Hgb 10.6 L Hct 32.1 L MCV 88.9 MCH 29.4 MCHC 33.0 RDW 12.7 Plt Count 129 L MPV 11.5 H Immature Gran % (Auto) 0.5 Neut % (Auto) 81.4 H Lymph % (Auto) 8.9 L [place] % (Auto) 8.9 H Eos % (Auto) 0.2 Baso % (Auto) 0.1 L Lymph # (Auto) 0.96 [place] # (Auto) 1.0 H Eos # (Auto) 0.0 Baso # (Auto) 0.0 Abs Immat Gran (auto) 0.05 H Absolute Neuts (auto) 8.8 H Absolute Nucleated RBC 0.0 Nucleated RBC % 0.0 % Immature Plt Fraction 8.8 Sodium 135 L Potassium 3.8 Chloride 105 Carbon Dioxide 28 Anion Gap 2 L BUN 11 Creatinine 0.60 L Estim Creat Clear Calc 56 Estimated GFR > 60 Glucose 148 H POC Capillary Glucose 225 H 197 H Calcium 8.8 Total Bilirubin 0.5 AST 42 H ALT 30 Alkaline Phosphatase 80 Total Protein 6.0 L Albumin 3.2 L 10/23/23 08:13 WBC RBC Hgb Hct MCV MCH MCHC RDW Plt Count MPV Immature Gran % (Auto) Neut % (Auto) Lymph % (Auto) [place] % (Auto) Eos % (Auto) Baso % (Auto) Lymph # (Auto) [place] # (Auto) Eos # (Auto) Baso # (Auto) Abs Immat Gran (auto) Absolute Neuts (auto) Absolute Nucleated RBC Nucleated RBC % % Immature Plt Fraction Sodium Potassium Chloride Carbon Dioxide Anion Gap BUN Creatinine Estim Creat Clear Calc Estimated GFR Glucose POC Capillary Glucose 146 H Calcium Total Bilirubin AST ALT Alkaline Phosphatase Total Protein Albumin Post-procedural complaints: none Patient Feedback: Patient satisfied with anesthetic care.
[2023-10-23] MEDS: polyethylene glycoL 3350 17 GM POWD.PACK PO (08:37)
[2023-10-23] MEDS: SENNA/DOCUSATE SODIUM TABLET 2 TAB PO ×2 (08:37→16:15)
[2023-10-23] MEDS: LIPASE/AMYLASE/PROTEASE 12,000 UNITS CAP 4 CAP PO ×3 (08:37→16:14)
[2023-10-23] MEDS: CHOLECALCIFEROL 1,000 UNITS TABLET 2000 UNITS PO ×2 (08:37→16:15)
[2023-10-23] MEDS: FAMOTIDINE 20 MG TABLET PO (08:38)
[2023-10-23] MEDS: ENOXAPARIN 40 MG/0.4 ML SYRINGE SUB-Q (08:38)
[2023-10-23] MEDS: SIMVASTATIN 20 MG TABLET PO (08:38)
[2023-10-23] MEDS: CALCIUM CARBONATE (OSCAL) 500 MG TABLET PO (08:38)
[2023-10-23] MEDS: CYANOCOBALAMIN 1,000 MCG TABLET 1000 MCG PO (08:38)
[2023-10-23] MEDS: oxyCODONE HCL (*CRX) 5 MG TAB IR PO ×2 (08:40→16:14)
--- NOTE | 2023-10-23 11:04 | PM.IMPN ---
Progress Note: A&P Assessment and Plan (1) Intertrochanteric fracture of left femur: Qualifiers: Encounter type: initial encounter Fracture type: closed Fracture alignment: displaced Qualified Code(s): S72.142A - Displaced intertrochanteric fracture of left femur, initial encounter for closed fracture Code(s): S72.142A - Displaced intertrochanteric fracture of left femur, initial encounter for closed fracture Status: Acute (2) Chest tightness: Code(s): R07.89 - Other chest pain Status: Acute (3) Insulin dependent diabetes mellitus: Status: Acute (4) Hypertension: Code(s): I10 - Essential (primary) hypertension Status: Acute (5) Pancreatic insufficiency: Code(s): K86.89 - Other specified diseases of pancreas Status: Acute Plan Intertrochanteric femur fracture LT (reported fall after brushing her hair and flipping up her head) Consult othro ORIF 10/20 Post-op day 1 Pain control pepcid monitor labs scd's consult to CC for rehab antiemetics IV fluids PT/OT Incentive spirometer while awake Diabetes Accu-Cheks a.c. HS sliding scale insulin resume patient's home long-acting Diabetic diet Watch for hypoglycemia/hypoglycemic protocol ordered HTN Stable resume home medications monitor per protocol Code status: Full code per patient DVT prophylaxis: SCD's/Lovenox post op Stress ulcer prophylaxis: Pepcid PT/OT notes: PT/OT post surgery Disposition: Patient continues admission for surgical intervention of Intertrochanteric femur fracture LT and will need post-op rehab prior to returning back to [place]. CC was consulted for assistance. Time Spent With Patient Time with patient: 15 - 25 minutes Subjective Date/time seen: 10/23/23 11:04 Interval history: (Medical Record) Chief Complaint: Left hip pain after fall. 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 The patient provides the following history. She is in town from [place] visiting her family members and she has been in her usual state of health. Sometime this afternoon she was in the bathroom brushing her hair and when she stepped forward she lost her balance and fell down onto her left side. She was unable to get herself up and unfortunately did not have a phone with her so she lay on the floor for approximately 4 hours before family came home to find her. She denies head trauma and loss of consciousness in the fall and has no other complaints aside from severe, 10/10 pain in the left hip. She received 4 mg IV morphine for her pain which helped however did cause transient hypotension at which time she had mild mid chest tightness lasting less than 1 minute. With further questioning she reports having a stress test many years ago which was negative. She has not had exertional chest pain or shortness of breath. She also denies syncope, near syncope, sweats, pleuritic pain, shortness a breath, nausea, and vomiting. In the ED she was found to have intertrochanteric fracture of the proximal left femur and she is being admitted in this setting. 10/20/: Patient resting comfortable and pain controlled. Pedal pulses 2+ bLE and LT extremity warm to touch and positive for sensation. Labs unremarkable and vitals stable, plan is for surgical intervention of LT intertrochanteric femur fracture. 10/21: Patient seen post-op ding well with no complaints. Tired but answering all questions appropriately and following commands. Vitals stable and LLE neurovascular intake, Pulse 2+, warm with sensation. 10/22: Patient doing well post-op day 2 worked with PT with moderate pain
[2023-10-23] MEDS: ACETAMINOPHEN 500 MG TABLET 1000 MG PO ×3 (11:33→22:08)
[2023-10-23 11:59] LABS: Glucose Point of Care 206 mg/dl (65-105)
[2023-10-23] MEDS: INSULIN ASPART (*BKC) 100 UNITS/ML SUB-Q ×2 (12:02→21:01)
--- NOTE | 2023-10-23 12:08 | PM.PNORT ---
Progress Note: A&P Assessment and Plan (1) Intertrochanteric fracture of left femur: Qualifiers: Encounter type: initial encounter Fracture alignment: displaced Fracture type: closed Qualified Code(s): S72.142A - Displaced intertrochanteric fracture of left femur, initial encounter for closed fracture Code(s): S72.142A - Displaced intertrochanteric fracture of left femur, initial encounter for closed fracture Status: Acute Assessment and Plan: POD #1 ORIF left hip intertrochanteric fracture with cephalomedullary nail. Patient tolerated procedure well. No complications. Pain manageable with pain medication. No numbness or tingling. We had a lengthy discussion regarding postoperative wound care, limitations, expectations, and exercises. Patient shows good understanding. Patient has had initial physical therapy and is tolerating it well. She will need to be discharged to rehab or SNF. Patient typically lives in [place] and was visiting her daughter. Plan on 4-6 weeks of rehab before heading back to [place]. Will need to follow up in office in 6 weeks with xrays. Ortho instructions: DOS: 10/22/23 D/C to SNF/rehab Xray and follow up in 6 weeks. Wound Care: Remove carol at 2 weeks post op. (11/05/23). Daily dressing changes until healed. PT: Weight bearing as tolerated with a walker. DVT prophylaxis: continue Lovenox for 30 days total Pain medication: Oxycodone, Tylenol. Subjective Subjective Date/Time Seen: 10/23/23 12:08 Interval history: Patient resting comfortably in bed. Pain with formal physical therapy. Sleepy after pain medications. Review of Systems Review of Systems: Pain in hip and leg with movement. Denied pain elsewhere. All systems reviewed & are unremarkable except as noted in HPI and below Exam Narrative: Over weight 83 y/o female. Resting comfortably in bed. Wearing compression socks bilaterally. Dressing dry and intact with no drainage. Moderate swelling. No ecchymosis. No erythema. No hematoma. Range of motion limited due to pain. Calf nontender. Thigh nontender. No varicosities. Distal pulses palpable. Did not wiggle left toes. Objective Data Vital Signs Vital Signs: Vital Signs - 24 hr 10/22/23 14:01 10/22/23 15:24 10/22/23 16:00 Temperature 97.1 F L Pulse Rate 85 80 Respiratory Rate 16 Blood Pressure 137/69 Pulse Oximetry 95 Oxygen Delivery Nasal Cannula Oxygen Flow Rate 2 10/22/23 20:10 10/22/23 20:00 10/23/23 00:10 Temperature 97.5 F L 98.8 F Pulse Rate 92 92 86 Respiratory Rate 18 18 18 Blood Pressure 144/70 H 118/56 L Pulse Oximetry 95 95 92 Oxygen Delivery Nasal Cannula Oxygen Flow Rate 2 10/23/23 04:10 10/22/23 20:00 10/23/23 00:00 Temperature 97.8 F Pulse Rate 90 90 83 Respiratory Rate 18 Blood Pressure 135/60 Pulse Oximetry 93 Oxygen Delivery Oxygen Flow Rate 10/23/23 04:00 10/23/23 08:53 10/23/23 08:58 Temperature 98.4 F Pulse Rate 92 97 Respiratory Rate 17 Blood Pressure 148/71 H Pulse Oximetry 94 93 Oxygen Delivery Room Air Oxygen Flow Rate 10/23/23 08:25 10/23/23 08:00 Temperature Pulse Rate 89 Respiratory Rate Blood Pressure Pulse Oximetry Oxygen Delivery Room Air Oxygen Flow Rate Intake/Output Intake/Output: Intake & Output 10/20/23 10/21/23 10/22/23 10/23/23 22:59 22:59 23:59 23:59 Intake Total 1290 Output Total 1200 Balance 90 Meds/Results Medications: Active Medications Generic Name Dose Route Start Last Admin Trade Name Freq PRN Reason Stop Dose Admin Acetaminophen 1,000 mg 10/22/23 10:25 10/23/23 11:33 Acetaminophen 500 Mg Tablet PO 1,000 mg Q6H STEFANO Administration Lipase/Protease/Amylase 4 cap 10/21/23 08:00 10/23/23 11:33 Lipase/Amylase/Protease 12,000 Units Cap PO 4 cap TIDWM STEFANO Administration Calcium Carbonate 500 mg 10/21/23 09:00 10/23/23 08:38
[2023-10-23 16:54] LABS: Glucose Point of Care 188 mg/dl (65-105)
[2023-10-23 19:47] LABS: Glucose Point of Care 260 mg/dl (65-105)
[2023-10-23] MEDS: INSULIN GLARGINE (*BKC) 100 UNITS/ML SUB-Q (21:00)
[2023-10-23] MEDS: lisinopriL 20 MG TABLET PO (21:05)
[2023-10-24] VITALS (8 sets, daily range): BP systolic 123–136; BP diastolic 64–70; PULSE 82–95; RESP 16–18; TEMP 36.4–37; O2SAT 92–99
[2023-10-24] MEDS: ACETAMINOPHEN 500 MG TABLET 1000 MG PO ×3 (04:04→17:21)
[2023-10-24 05:35] LABS: Hemoglobin 10.7 g/dL (12.0-15.0); Immature Platelet Fraction Pct 8.5 % (0.9-11.2); Mean Corpuscular HGB Conc 32.4 g/dl (32-36); Mean Corpuscular Hemoglobin 28.9 pg (26-34); Mean Corpuscular Volume 89.2 fl (80-100); Mean Platelet Volume 11.3 fl (7.4-10.4); Platelet Count Result 123 k/mm3 (150-375); Red Cell Distribution Width 12.9 % (11.5-14.5); White Blood Count 8.2 K/mm3 (4.5-10.0)
[2023-10-24 05:42] LABS: Alanine Aminotransferase 20 U/L (6-35); Albumin Level 3.1 g/dL (3.5-5.1); Alkaline Phosphatase 82 U/L (38-126); Anion Gap 0 mmol/L (8-16); Aspartate Amino Transferase 32 U/L (14-36); Bilirubin,Total 0.6 mg/dL (0.2-1.3); Blood Urea Nitrogen 13 mg/dL (7-17); Calcium 8.6 mg/dL (8.4-10.2); Carbon Dioxide 32 mmol/L (22-30); Chloride 101 mmol/L (98-107); Estimated CRCL calculation 56 ml/min; Estimated Glomerular Filt Rate > 60; Glucose 176 mg/dL (65-110); Potassium 4.2 mmol/L (3.4-5.0); Sodium 133 mmol/L (137-145)
--- NOTE | 2023-10-24 08:20 | PCPTNOTE ---
Attempted to see patient for PT, however patient reported she would like pain medication before working with therapy.
--- NOTE | 2023-10-24 08:30 | PM.PNORT ---
Progress Note: A&P Assessment and Plan (1) Intertrochanteric fracture of left femur: Qualifiers: Encounter type: initial encounter Fracture type: closed Fracture alignment: displaced Qualified Code(s): S72.142A - Displaced intertrochanteric fracture of left femur, initial encounter for closed fracture Code(s): S72.142A - Displaced intertrochanteric fracture of left femur, initial encounter for closed fracture Status: Acute Assessment and Plan: POD #2 ORIF left hip intertrochanteric fracture with cephalomedullary nail. No changes in plan of care. Patient tolerated procedure well. No complications. Pain manageable with pain medication. No numbness or tingling. Encouraged her to work with PT/OT. Plan for [facility]. We had a lengthy discussion regarding postoperative wound care, limitations, expectations, and exercises. Patient shows good understanding. Patient has had initial physical therapy and is tolerating it well. She will need to be discharged to rehab or SNF. Patient typically lives in [place] and was visiting her daughter. Plan on 4-6 weeks of rehab before heading back to [place]. Will need to follow up in office in 6 weeks with xrays. Ortho instructions: DOS: 10/22/23 D/C to SNF/rehab Xray and follow up in 6 weeks. Wound Care: Remove carol at 2 weeks post op. (11/05/23). Daily dressing changes until healed. PT: Weight bearing as tolerated with a walker. DVT prophylaxis: continue Lovenox for 30 days total Pain medication: Oxycodone, Tylenol. Subjective Subjective Date/Time Seen: 10/24/23 08:30 Interval history: Patient resting comfortably in bed. Pain with formal physical therapy. Encouraged her to work with therapy. No other complaints Review of Systems Review of Systems: Pain in hip and leg with movement. Denied pain elsewhere. All systems reviewed & are unremarkable except as noted in HPI and below Exam Narrative: Over weight 83 y/o female. Resting comfortably in bed. Wearing compression socks bilaterally. Dressing dry and intact with no drainage. Moderate swelling. No ecchymosis. No erythema. No hematoma. Range of motion limited due to pain. Calf nontender. Thigh nontender. No varicosities. Distal pulses palpable. Objective Data Vital Signs Vital Signs: Vital Signs - 24 hr 10/23/23 08:53 10/23/23 08:58 10/23/23 11:33 Temperature 98.4 F 98.4 F Pulse Rate 97 92 Respiratory Rate 17 16 Blood Pressure 148/71 H 133/58 L Pulse Oximetry 94 93 92 Oxygen Delivery Room Air 10/23/23 12:00 10/23/23 16:00 10/23/23 20:42 Temperature 97.4 F L Pulse Rate 89 84 88 Respiratory Rate 17 Blood Pressure 125/51 L Pulse Oximetry 91 Oxygen Delivery 10/23/23 20:00 10/23/23 20:00 10/24/23 00:00 Temperature Pulse Rate 93 93 Respiratory Rate Blood Pressure Pulse Oximetry Oxygen Delivery Room Air 10/24/23 05:13 10/24/23 04:00 10/24/23 08:00 Temperature 98.6 F Pulse Rate 95 82 88 Respiratory Rate 18 Blood Pressure 136/68 Pulse Oximetry 92 Oxygen Delivery Intake/Output Intake/Output: Intake & Output 10/21/23 10/22/23 10/23/23 10/24/23 22:59 23:59 23:59 23:59 Intake Total 2020 450 Output Total 2700 1200 Balance -680 -750 Meds/Results Medications: Active Medications Generic Name Dose Route Start Last Admin Trade Name Freq PRN Reason Stop Dose Admin Acetaminophen 1,000 mg 10/22/23 10:25 10/24/23 04:04 Acetaminophen 500 Mg Tablet PO 1,000 mg Q6H STEFANO Administration Lipase/Protease/Amylase 4 cap 10/21/23 08:00 10/23/23 16:14 Lipase/Amylase/Protease 12,000 Units Cap PO 4 cap TIDWM STEFANO Administration Calcium Carbonate 500 mg 10/21/23 09:00 10/23/23 08:38 Calcium Carbonate (Oscal) 500 Mg Tablet PO 500 mg QAM STEFANO Administration Cyanocobalamin 1,000 mcg 10/21/23 09:00 10/23/23 08:38 Cyanocobalamin 1,000 Mcg Tablet PO 1,000 mcg
[2023-10-24 08:36] LABS: Glucose Point of Care 208 mg/dl (65-105)
[2023-10-24] MEDS: FAMOTIDINE 20 MG TABLET PO (08:37)
[2023-10-24] MEDS: CALCIUM CARBONATE (OSCAL) 500 MG TABLET PO (08:37)
[2023-10-24] MEDS: CYANOCOBALAMIN 1,000 MCG TABLET 1000 MCG PO (08:37)
[2023-10-24] MEDS: LIPASE/AMYLASE/PROTEASE 12,000 UNITS CAP 4 CAP PO ×3 (08:37→17:22)
[2023-10-24] MEDS: CHOLECALCIFEROL 1,000 UNITS TABLET 2000 UNITS PO ×2 (08:38→17:21)
[2023-10-24] MEDS: ENOXAPARIN 40 MG/0.4 ML SYRINGE SUB-Q (08:38)
[2023-10-24] MEDS: oxyCODONE HCL (*CRX) 5 MG TAB IR PO ×3 (08:38→19:57)
[2023-10-24] MEDS: SENNA/DOCUSATE SODIUM TABLET 2 TAB PO ×2 (08:38→17:21)
[2023-10-24] MEDS: polyethylene glycoL 3350 17 GM POWD.PACK PO (08:39)
[2023-10-24] MEDS: INSULIN ASPART (*BKC) 100 UNITS/ML SUB-Q ×2 (08:41→12:27)
--- NOTE | 2023-10-24 11:39 | PM.DS ---
DS: Admitting Diagnosis Discharge Date 10/24/2023 Admitting Diagnosis intertrochanteric fracture of the left Femur DS: Discharge Diagnosis Discharge Diagnosis (1) Intertrochanteric fracture of left femur: Qualifiers: Encounter type: initial encounter Fracture type: closed Fracture alignment: displaced Qualified Code(s): S72.142A - Displaced intertrochanteric fracture of left femur, initial encounter for closed fracture Code(s): S72.142A - Displaced intertrochanteric fracture of left femur, initial encounter for closed fracture Status: Acute (2) Chest tightness: Code(s): R07.89 - Other chest pain Status: Acute (3) Insulin dependent diabetes mellitus: Status: Acute (4) Hypertension: Code(s): I10 - Essential (primary) hypertension Status: Acute (5) Pancreatic insufficiency: Code(s): K86.89 - Other specified diseases of pancreas Status: Acute Plan Intertrochanteric femur fracture LT (reported fall after brushing her hair and flipping up her head) Consult othro ORIF 10/20 Post-op day 1 Pain control pepcid monitor labs scd's consult to CC for rehab antiemetics IV fluids PT/OT Incentive spirometer while awake Diabetes Accu-Cheks a.c. HS sliding scale insulin resume patient's home long-acting Diabetic diet Watch for hypoglycemia/hypoglycemic protocol ordered HTN Stable resume home medications monitor per protocol Code status: Full code per patient DVT prophylaxis: SCD's/Lovenox post op Stress ulcer prophylaxis: Pepcid PT/OT notes: PT/OT post surgery Disposition: Patient continues admission for surgical intervention of Intertrochanteric femur fracture LT and will need post-op rehab prior to returning back to [place]. CC was consulted for assistance. DS: Summary Hospital Course Reason for hospitalization: intertrochanteric fracture of the left Femur Hospital Course: (Medical Record) Chief Complaint: Left hip pain after fall. 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 The patient provides the following history. She is in town from [place] visiting her family members and she has been in her usual state of health. Sometime this afternoon she was in the bathroom brushing her hair and when she stepped forward she lost her balance and fell down onto her left side. She was unable to get herself up and unfortunately did not have a phone with her so she lay on the floor for approximately 4 hours before family came home to find her. She denies head trauma and loss of consciousness in the fall and has no other complaints aside from severe, 10/10 pain in the left hip. She received 4 mg IV morphine for her pain which helped however did cause transient hypotension at which time she had mild mid chest tightness lasting less than 1 minute. With further questioning she reports having a stress test many years ago which was negative. She has not had exertional chest pain or shortness of breath. She also denies syncope, near syncope, sweats, pleuritic pain, shortness a breath, nausea, and vomiting. In the ED she was found to have intertrochanteric fracture of the proximal left femur and she is being admitted in this setting. 10/20/: Patient resting comfortable and pain controlled.? Pedal pulses 2+ bLE and LT extremity warm to touch and positive for sensation.? Labs unremarkable and vitals stable, plan is for surgical intervention of LT intertrochanteric femur fracture. 10/21: Patient seen post-op ding well with no complaints.? Tired but answering all questions appropriately and following commands.? Vitals stable and LLE neur
[2023-10-24 12:18] LABS: Glucose Point of Care 240 mg/dl (65-105)
[2023-10-24 17:18] LABS: Glucose Point of Care 171 mg/dl (65-105)
== END 2023-10-24 21:05 | DRG 482 ==
LOC: ANHED 16:32 → ANH2MED 19:40
PROVIDERS: Orthopaedic Surgery; Physician Assistant; Physician Assistant Surgical; Admitting Provider Internal Medicine; Emergency Provider Student in an Organized Health Care Education/Training Program; Visit Provider Nurse Practitioner Family
PROC: 0QS736Z Reposition Left Upper Femur with Intramedullary Internal Fixation Device, Percutaneous Approach (ICD-10-PCS; CPT 27245; principal; 2023-10-22 07:30)
DX: S72.142A Displaced intertrochanteric fracture of left femur, initial encounter for closed fracture (principal); I95.89 Other hypotension; W18.30XA Fall on same level, unspecified, initial encounter; E11.9 Type 2 diabetes mellitus without complications; E78.5 Hyperlipidemia, unspecified; I10 Essential (primary) hypertension; K21.9 Gastro-esophageal reflux disease without esophagitis; K86.89 Other specified diseases of pancreas; Z79.4 Long term (current) use of insulin; Z90.49 Acquired absence of other specified parts of digestive tract; Z86.39 Personal history of other endocrine, nutritional and metabolic disease
CPT/HCPCS: 36415; 70450; 71045; 73502; 73552; 80053; 82550; 82948; 83036; 83735; 84484; 85025; 85027; 85055; 85610; 85730; 86850; 86900; 86901; 93005; 96374; 96375; 97110; 97116; 97161; 97165; 97530; 97535; 99199; 99285; A9270; C1713; C1769; C8929; J0690; J1100; J1170; J1200; J1650; J1815; J2270; J2371; J2405; J2704; J3010; J7030; J7120; Q9957